=== PATIENT | male | born 1955 | race Caucasian/White ===

== ENCOUNTER 2022-04-14 02:40 | Emergency (ER) | payer OTHER ==
--- NOTE | 2022-04-14 02:45 | NUR ---
Patient BIB [facility] from home for c/o epigastric from home for several hrs. Placed in room 1B at this time.
--- NOTE | 2022-04-14 03:00 | NUR ---
Walked into patient's room to triaged. Patient was found unresponsive with agonal breathing. Called Dr Bryant in room for eval.
--- NOTE | 2022-04-14 03:01 | NUR ---
jovan to triaged patient due to patient being Coded prior to triaged.
[2022-04-14] MEDS ORDERED: MAGNESIUM SULFATE 2 GM in IV DEXTROSE 5% 100 ML IV ONE (03:15)
[2022-04-14] MEDS ORDERED: ASPIRIN 81 MG TAB.CHEW PO ONE (03:15)
[2022-04-14] MEDS ORDERED: IV NORMAL SALINE 1000 ML BAG IV ONE (03:15)
--- NOTE | 2022-04-14 03:15 | NUR ---
Called [facility] for propagator laborer transfer. Faxed Facesheet and EKG to plumbing warehouse helper as requested. [employer] Data Lead from [place] requested to call for other hospital for transfer due to being at capacity.
[2022-04-14] MEDS ORDERED: MAGNESIUM SULFATE/D5W 200 ML ONE (03:19)
[2022-04-14] MEDS ORDERED: ALTEPLASE 100 MG/100 ML VIAL IV ONE (03:30)
[2022-04-14] MEDS ORDERED: ALTEPLASE BOLUS DOSE IV ONE (03:30)
[2022-04-14] MEDS ORDERED: PROCHLORPERAZINE EDISYLATE 10 MG/2 ML VIAL ONE (03:32)
--- NOTE | 2022-04-14 03:45 | NUR ---
Gave SBAR report to Rishi nurse from [facility] for transfer.
[2022-04-14] MEDS ORDERED: ASPIRIN 300 MG RECTAL SUPP RC ONE ×2 (03:48→04:00)
[2022-04-14] MEDS ORDERED: IV NORMAL SALINE 500 ML IV ONE (04:00)
[2022-04-14 04:03] LABS: HEMATOCRIT 47.8 % (36.7-47.1); MEAN CORPUSCULAR VOLUME 82.6 fL (73.0-96.2); PLATELET COUNT (AUTO) 174 K/uL (152-348)
[2022-04-14 04:16] LABS: CARBON DIOXIDE 15 mmol/L (21-32); CHLORIDE 101 mmol/L (98-107); POTASSIUM 3.2 mmol/L (3.5-5.1); UREA NITROGEN, BLOOD 27 mg/dL (7-18)
[2022-04-14 04:20] LABS: GLUCOSE 330 mg/dL (74-106)
[2022-04-14 04:29] LABS: ALANINE AMINOTRANSFERASE 61 U/L (16-63); ALKALINE PHOSPHATASE 66 U/L (50-136); ASPARTATE AMINOTRANSFERASE 37 U/L (15-37); BILIRUBIN,DIRECT 0.1 mg/dL (0.0-0.2); BILIRUBIN,TOTAL 0.3 mg/dL (0.2-1.0); TOTAL PROTEIN, SERUM 6.6 g/dL (6.4-8.2)
--- NOTE | 2022-04-14 04:31 | NUR ---
[place] [facility] [place] [id number].
== END 2022-04-14 04:31 | disposition short-term general hospital (02) ==
LOC: ER 02:49
DX: I21.3 ST elevation (STEMI) myocardial infarction of unspecified site (principal); G93.40 Encephalopathy, unspecified; I46.9 Cardiac arrest, cause unspecified
CPT/HCPCS: 99291; 92950; 31500; 96365; 71045; 96375; 80076; 80048; 85025; 85379; 85730; 84484; 36415; 99292; 83605; 93005; J2997 ×2; J3475 ×2; J7040 ×2; 70030-TC; A4663; J0780